=== PATIENT | female | born 1975 | race African-American/Black ===

== ENCOUNTER 2019-07-14 17:29 | Emergency (ER) | payer MEDICAID ==
[~2019-07-14] VITALS: Ht 165.1 cm; Wt 85.7 kg
[~2019-07-14 17:29] MED LIST: ATORVASTATIN CA20 MG ORAL; CYCLOBENZAPRINE10 MG ORAL; FLEXERIL5 MG PO; IBUPROFEN600 MG ORAL; IBUPROFEN600 MG PO; METOPROLOL TART25 MG ORAL; PREDNISONE20 MG ORAL; VISTARIL25 M1 PO; ZOFRAN ODT4 MG ORAL
[2019-07-14] MEDS: Ketorolac 30mg Inj IV ONE ×2 (18:00→18:26)
[2019-07-14] MEDS ORDERED: Omnipaque-300 100ml vial INJ PRN (18:00)
--- NOTE | 2019-07-14 18:00 | NUR ---
ED Nurse Note: Patient presents to ER due to RLQ abdominal pain since this morning radiating to the back; reports no fever, chills or urinary problem. Reports no heavy workout or lifting. Patient ambulated to the room with steady gait. Patient awake, alert, oriented x 4. Regular, unlabored breathing noted.
--- NOTE | 2019-07-14 18:00 | NUR ---
ED Nurse Note: Patient refused meds/IV fluids. Patient states she wants to wait for blood test result. TANIA Pickard notified and aware.
[2019-07-14 18:31] LABS: APPEARANCE,URINE CLEAR; BASOPHILS % (AUTO) 0.6 % (0.0-2.0); BILIRUBIN, URINE NEGATIVE (NEGATIVE); EOSINOPHILS % (AUTO) 0.9 % (0.0-3.0); GLUCOSE, URINE (UA) NEGATIVE (NEGATIVE); HEMATOCRIT 38.8 % (37.0-47.0); HEMOGLOBIN 12.9 G/DL (12.0-16.0); KETONES,URINE 1+ (NEGATIVE); LEUKOCYTE ESTERASE ,URINE 1+ (NEGATIVE); LYMPHOCYTES % (AUTO) 39.6 % (20.0-45.0); MEAN CORPUSCULAR VOLUME 92 FL (80-99); MONOCYTES % (AUTO) 9.4 % (1.0-10.0); NEUTROPHILS % (AUTO) 49.6 % (45.0-75.0); NITRITE,URINE NEGATIVE (NEGATIVE); PH,URINE 7 (4.5-8.0); PLATELET COUNT 274 K/UL (150-450); PROTEIN,URINE NEGATIVE (NEGATIVE); RED BLOOD COUNT 4.23 M/UL (4.20-5.40); RED CELL DISTRIBUTION WIDTH 11.9 % (11.6-14.8); UROBILINOGEN,URINE NORMAL MG/DL (0.0-1.0); WHITE BLOOD COUNT 6.9 K/UL (4.8-10.8)
[2019-07-14 18:32] LABS: COLOR,URINE YELLOW
[2019-07-14 18:37] LABS: ANION GAP 7 mmol/L (5-15); BLOOD UREA NITROGEN 17 mg/dL (7-18); CALCIUM 9.3 MG/DL (8.5-10.1); CARBON DIOXIDE 31 MMOL/L (21-32); CHLORIDE 105 MMOL/L (98-107); POTASSIUM 3.8 MMOL/L (3.5-5.1); SODIUM 143 MMOL/L (136-145)
[2019-07-14 18:38] LABS: INR 0.9 (0.9-1.1)
[2019-07-14 18:41] LABS: ALANINE AMINOTRANSFERASE 34 U/L (12-78); ALBUMIN 3.5 G/DL (3.4-5.0); ALBUMIN/GLOBULIN RATIO 0.8 (1.0-2.7); ALKALINE PHOSPHATASE 78 U/L (46-116); ASPARTATE AMINO TRANSFERASE 19 U/L (15-37); BILIRUBIN,TOTAL 0.1 MG/DL (0.2-1.0)
--- NOTE | 2019-07-14 18:45 | NUR ---
ED Nurse Note: RN attempted to insert IV to left AC and unsuccessful at this time. Applied clean, dry dressing. Addendum: 07/14/19 at 1913 by MALGORZATA ED Nurse Note: RN attempted to insert another IV to left AC for CT scan as RN unable to advance the catheter on [facility] completely. RN able to get blood return fromt IV on [facility].
--- NOTE | 2019-07-14 19:10 | NUR ---
ED Nurse Note: Report given to AMRITA Kasper. Patient resting in bed. No facial grimacing or guarding noted. RN removed IV from right AC as patient c/o pain with flushing. Applied clean, dry drssing and ice pack provided.
[2019-07-14 20:00] VITALS: BP 150/90
--- NOTE | 2019-07-14 20:40 | Diagnostic Imaging Report ---
EXAM: CT Abdomen and Pelvis With Intravenous Contrast CLINICAL HISTORY: PAIN TECHNIQUE: Axial computed tomography images of the abdomen and pelvis with intravenous contrast. CTDI is 24 mGy and DLP is 1421 mGy-cm. One or more of the following dose reduction techniques were used: automated exposure control, adjustment of the mA and/or kV according to patient size, use of iterative reconstruction technique. COMPARISON: No relevant prior studies available. FINDINGS: Lung bases: Dependent atelectasis. ABDOMEN: Liver: Unremarkable. Gallbladder and bile ducts: Unremarkable. Pancreas: Unremarkable. Spleen: Unremarkable. Adrenals: Unremarkable. Kidneys and ureters: Unremarkable. Stomach and bowel: Bowel is unremarkable. PELVIS: Appendix: Appendix is unremarkable. Bladder: Unremarkable. Reproductive: Myomatous uterus. ABDOMEN and PELVIS: Intraperitoneal space: Unremarkable. Bones/joints: No acute fracture. No dislocation. Soft tissues: Unremarkable. Vasculature: Unremarkable. No abdominal aortic aneurysm. Lymph nodes: Unremarkable. IMPRESSION: No acute findings in the abdomen or pelvis.
--- NOTE | 2019-07-14 20:46 | Emergency Room Report ---
History of Present Illness General Chief Complaint: Abdominal Pain Source: Patient Present Illness HPI 44-year-old female with no significant past medical history here complaining of sudden onset of right-sided abdominal pain periumbilical radiating to right flank. Denies any urinary frequency and urgency at this time. Complains of few bouts of nonbloody emesis. Denies diarrhea and constipation. Denies fever and chills, URI symptoms, generalized body ache. Has not taken medication for symptom relief. Denies any past surgical history. Reports that she often has irregular uterine bleeding. Has not yet seen by primary care physician. No guarding or rebound noted upon my physical examination. Allergies: Coded Allergies: No Known Allergies (Unverified , 03/31/12) Patient History Past Medical History: see triage record Past Surgical History: unable to obtain Pertinent Family History: none Now: No Immunizations: UTD Reviewed Nursing Documentation: PMH: Agreed; PSxH: Agreed Nursing Documentation-PMH Past Medical History: No History, Except For Hx Hypertension: Yes Review of Systems All Other Systems: negative except mentioned in HPI Physical Exam Vital Signs Date Time Temp Pulse Resp B/P (MAP) Pulse Ox O2 Delivery O2 Flow Rate FiO2 07/14/19 17:36 98.4 76 18 150/90 (110) 99 Room Air Sp02 EP Interpretation: reviewed, normal General Appearance: no apparent distress, alert, GCS 15, non-toxic Head: normocephalic, atraumatic Eyes: bilateral eye normal inspection, bilateral eye PERRL ENT: hearing grossly normal, normal pharynx, no angioedema, normal voice Neck: full range of motion, supple, supple/symm/no masses Respiratory: chest non-tender, lungs clear, normal breath sounds, no rhonchi, no retraction, no wheezing, speaking full sentences Cardiovascular #1: regular rate, rhythm, no edema, no murmur, normal capillary refill Gastrointestinal: normal bowel sounds, non tender, soft, no mass, no organomegaly, no peritonitis, no bruit, non-distended, no guarding, no hernia, no pulsatile mass, no rebound Rectal: deferred Genitourinary: no CVA tenderness Musculoskeletal: back normal, no calf tenderness Neurologic: alert, oriented Psychiatric: judgement/insight normal Skin: no rash, normal color Lymphatic: no adenopathy Medical Decision Making PA Attestation All diagnoses and treatment plans were reviewed and discussed with my supervising physician Dr. Luque Diagnostic Impression: Primary Impression: Abdominal pain Additional Impressions: UTI (urinary tract infection) Nausea & vomiting ER Course 44-year-old female with no significant past medical history here complaining of sudden onset of right-sided abdominal pain periumbilical radiating to right flank. Denies any urinary frequency and urgency at this time. Complains of few bouts of nonbloody emesis. Denies diarrhea and constipation. Denies fever and chills, URI symptoms, generalized body ache. Has not taken medication for symptom relief. Denies any past surgical history. Reports that she often has irregular uterine bleeding. Has not yet seen by primary care physician. No guarding or rebound noted upon my physical examination. Ddx considered but are not limited to: appendicitis, cholecystis, gastritis, gastroenteritis, UTI, pyelonephritis, SBO, diverticulitis, influenza with GI manifestation, CO, complication with Vital signs: are WNL, pt. is afebrile H&PE are most consistent with: Abdominal pain most likely secondary to gastroenteritis, UTI, nausea vomiting ORDERS: abdominal CT, abdominal pain set, EKG, Zofran, Tylenol, Macrobid ED INTERVENTIONS: NS bolus, Pepcid, Toradol, Zofran DISCHARGE: At this time pt. is stable for d/c to home. Will provide printed patient care instructions, and any necessary prescriptions. Care plan and follow up instructions have been discussed with the patient prior to discharge. Patient to follow with primary care provider, if worsening symptoms return to the emergency room. Keep a brat diet, at this time no acute findings noted based on CT scan. However if worsening symptoms return to the emergency EKG Diagnostic Results Rate: normal Rhythm: NSR ST Segments: no acute changes Other Impression No acute ST changes CT/MRI/US Diagnostic Results CT/MRI/US Diagnostic Results : Imaging Test Ordered: CT abdomen pelvis with contrast Impression FINDINGS: Lung bases: Dependent atelectasis. ABDOMEN: Liver: Unremarkable. Gallbladder and bile ducts: Unremarkable. Pancreas: Unremarkable. Spleen: Unremarkable. Adrenals: Unremarkable. Kidneys and ureters: Unremarkable. Stomach and bowel: Bowel is unremarkable. PELVIS: Appendix: Appendix is unremarkable. Bladder: Unremarkable. Reproductive: Myomatous uterus. ABDOMEN and PELVIS: Intraperitoneal space: Unremarkable. Bones/joints: No acute fracture. No dislocation. Soft tissues: Unremarkable. Vasculature: Unremarkable. No abdominal aortic aneurysm. Lymph nodes: Unremarkable. IMPRESSION: No acute findings in the abdomen or pelvis. Last Vital Signs Date Time Temp Pulse Resp B/P (MAP) Pulse Ox O2 Delivery O2 Flow Rate FiO2 07/14/19 18:18 76 18 Room Air 07/14/19 17:36 98.4 150/90 (110) 99 Disposition: HOME, SELF-CARE Condition: Stable Scripts Nitrofurantoin Monohyd/M-Cryst* (MACROBID 100 MG*) 100 Mg Capsule 100 MG ORAL EVERY 12 HOURS for 7 Days, #14 CAP Prov: Melly Wiggins 07/14/19 Acetaminophen* (TYLENOL EXTRA STRENGTH*) 500 Mg Tablet 500 MG ORAL Q8H PRN for Prn Headache/Temp > 101, #30 TAB 0 Refills Prov: Melly Wiggins 07/14/19 Ondansetron (Zofran) 4 Mg Tablet 4 MG ORAL Q6H PRN for Nausea & Vomiting, #10 TAB Prov: Melly Wiggins 07/14/19 Referrals: NON PHYSICIAN (PCP) Patient Instructions: Abdominal Pain, Adult, Nausea and Vomiting, Adult, Easy- to-Read, Urinary Tract Infection, [id number] Additional Instructions: Take medication as directed, follow-up with your primary care, if worsening symptoms return to the emergency room. Melly Wiggins Jul 14, 2019 20:46
[2019-07-14] MEDS ORDERED: ZOFRAN4 M1 ORAL (20:48)
[2019-07-14] MEDS ORDERED: NITROFURANTOIN100 M2 ORAL (20:48)
[2019-07-14] MEDS ORDERED: TYLENOL EXTRA500 MG ORAL (20:48)
[2019-07-14 21:00] VITALS: BP 150/90
--- NOTE | 2019-07-14 21:00 | NUR ---
ER DISCHARGE NOTE: Patient is cleared to be discharged per TANIA Pickard. pt is aox4, on room air, with stable vital signs. pt was given dc and prescription instructions as well as lab and CT results. pt verbalized understanding of teachings. pt id band and iv site removed without complications. pt is able to ambulate with steady gait. pt took all belongings.
== END 2019-07-14 21:00 | disposition home or self-care (01) ==
LOC: EMR 18:24
DX: N39.0 Urinary tract infection, site not specified (principal); R10.33 Periumbilical pain; R11.2 Nausea with vomiting, unspecified
CPT/HCPCS: 36415; 74177; 80053; 81003; 81025; 83690; 84484; 85025; 85610; 85730; J7030; Q9967; Z7502; 99284; J2405

== ENCOUNTER 2020-05-30 11:18 | Emergency (ER) | payer MEDICAID ==
[~2020-05-30] VITALS: Ht 165.1 cm; Wt 86.2 kg
[~2020-05-30 11:18] MED LIST changes: +NITROFURANTOIN100 M2 ORAL; +TYLENOL EXTRA500 MG ORAL; +ZOFRAN4 M1 ORAL
[2020-05-30 11:33] VITALS: BP 121/86
[2020-05-30] MEDS ORDERED: GUAIFENESIN DM118 M1 ORAL (12:10)
[2020-05-30] MEDS ORDERED: LORATADINE10 M1 PO (12:10)
[2020-05-30 12:32] VITALS: BP 121/86
--- NOTE | 2020-05-30 16:59 | Diagnostic Imaging Report ---
Indication: Shortness of breath Technique: One view of the chest Comparison: none Findings: Lungs and pleural spaces are clear. Heart size is normal. No significant change Impression: No acute process
--- NOTE | 2020-06-08 14:42 | Emergency Room Report ---
History of Present Illness General Chief Complaint: Flu Like Symptoms Source: Patient Present Illness HPI Patient is a 45-year-old female presents for increased headache, cough, generalized body aches onset of symptoms approximately 5 days ago. Cough is nonproductive. Denies any hemoptysis. Denies any vomiting or diarrhea. Denies prior medical history. Allergies: Coded Allergies: No Known Allergies (Unverified , 03/31/12) COVID-19 Screening Contact w/high risk pt: Yes Experienced COVID-19 symptoms?: Yes COVID-19 Testing performed DEHYDRATOR TENDER: No Patient History Past Medical History: see triage record Reviewed Nursing Documentation: PMH: Agreed; PSxH: Agreed Nursing Documentation-PMH Hx Hypertension: Yes Review of Systems All Other Systems: negative except mentioned in HPI Physical Exam General Appearance: well appearing, no apparent distress, alert, GCS 15 Head: normocephalic, atraumatic ENT: hearing grossly normal, normal voice Neck: full range of motion, supple Respiratory: lungs clear, no respiratory distress, speaking full sentences Cardiovascular #1: normal inspection, no edema Gastrointestinal: normal inspection Musculoskeletal: normal inspection, swelling, no calf tenderness Neurologic: alert, motor strength/tone normal, automobile and property underwriter III-XII nml as tested, oriented x3, normal gait Psychiatric: normal inspection, mood/affect normal Skin: no rash Medical Decision Making Diagnostic Impression: Primary Impression: Viral respiratory infection ER Course Patient presents for cough. Differential diagnosis include was not limited to allergic rhinitis, coronavirus infection, influenza, pneumonia among others. Patient has a benign exam and does not appear to require any imaging or laboratory testing at this time. Patient has an overall benign exam does not appear to be toxic. Oxygen saturation appears to be adequate. Patient does not have any evidence of respiratory distress at this time. Does not meet current hospital criteria for coronavirus testing. Patient was advised to follow-up for outpatient coronavirus testing. Advised self quarantine. She was advised to return if increased shortness of breath, or any other concerns. She is given prescriptions for medications for symptomatic treatment. This medical record is generated with [employer] veterinary technician software. There may be some veterinary technician discrepancies related to use of this software Chest X-Ray Diagnostic Results Chest X-Ray Diagnostic Results : Chest X-Ray Ordered: Yes # of Views/Limited/Complete: 1 View Indication: Other - Cough EP Interpretation: No Interpretation: no consolidation, no effusion, no pneumothorax, no acute cardiopulmonary disease Impression: No acute disease Electronically Signed by: Electronically signed by Dr. Jamie Dia M.D. Status: improved Disposition: HOME, SELF-CARE Condition: Stable Scripts Guaifenesin/Dextromethorphan* (Guaifenesin Dm Syrup*) 5 Ml Syrup 5 ML ORAL Q8H PRN for FOR COUGH, #118 ML 0 Refills Prov: Jamie Dia MD 05/30/20 Loratadine (Claritin*) 10 Mg Tab.rapdis 10 MG PO DAILY for Allergies, #20 TAB Prov: Jamie Dia MD 05/30/20 Referrals: [facility],REFERRING (PCP) Patient Instructions: Viral Respiratory Infection, [id number] Additional Instructions: Follow up with your doctor for recheck. Return if worse. Take medications as prescribed. Jamie Dia MD Jun 08, 2020 14:42
== END 2020-05-30 12:34 | disposition home or self-care (01) ==
LOC: EMR 12:19
DX: B34.9 Viral infection, unspecified (principal); I10 Essential (primary) hypertension
CPT/HCPCS: 71045; Z7502; 99283